=== PATIENT | male | born 1960 | race Caucasian/White ===

== ENCOUNTER 2021-07-27 06:33 | Day surgery (SDC) | payer OTHER, SELFPAY ==
[2021-07-25 10:47] VITALS: BMI 28.2
[2021-07-27 06:50] VITALS: BP 179/108; PULSE 67; RESP 18; TEMP 36.1; O2SAT 97
[2021-07-27] MEDS: sodium chloride 0.9% 1,000 ML 30 ML IV (06:57)
--- NOTE | 2021-07-27 06:58 | W.PM.OPSFHP ---
Same Day Surgery H&P Indication for Procedure/HPI DATE OF PROCEDURE: July 27, 2021 CHIEF COMPLAINT/INDICATIONFOR SURGICAL PROCEDURE: colonoscopy PREOP DIAGNOSIS: diagnostic PLANNED PROCEDURE: Operation Date: 07/27/21 08:00 Proposed Procedures p Colonoscopy 110988/z86.010(Not Applicable) - All Auguste MD Medications/Allergies* Home Medications Medication Instructions Recorded Confirmed Type aspirin 81 mg tablet,delayed 81 mg PO DAILY 05/21/21 07/27/21 History release (Adult Low Dose Aspirin) atorvastatin 80 mg tablet 80 mg PO DAILY 05/21/21 07/27/21 History fluorouracil 5 % topical cream 1 applic TOPICAL BID 05/21/21 07/25/21 History metoprolol succinate 100 mg 100 mg PO DAILY 05/21/21 07/27/21 History tablet,extended release 24 hr multivitamin 1 tab PO DAILY 05/21/21 07/27/21 History naproxen 250 mg tablet 250 mg PO BID PRN 05/21/21 07/27/21 History Allergies/Adverse Reactions Allergy/AdvReac Type Severity Reaction Status Date / Time No Known Allergies Allergy Unverified 05/21/21 11:40 Current Medications: Generic Name Dose Route Start Last Admin Trade Name Freq PRN Reason Stop Dose Admin Sodium Chloride 1,000 mls @ 30 mls/hr 07/27/21 06:45 07/27/21 06:57 Sodium Chloride 0.9% IV 07/28/21 06:44 30 mls/hr .Q24H MARGUERITE Administration Pertinent History/Comorbid Conditions* Medical History (Updated 05/21/21 @ 17:42 by All Auguste MD) Hyperlipidemia Hypertension Left inguinal hernia Vitamin D deficiency Surgical History (Updated 05/21/21 @ 11:51 by All Auguste MD) History of colonoscopy 2011 History of coronary artery stent placement Family History (Updated 05/21/21 @ 11:44 by Flores Oconnell MA) Cancer Hypertension Social History Smoking and tobacco status: never smoked Pertinent Exam Findings alert, oriented x 3 and regular rate & rhythm Recommendations Surgery/Procedure today Coding Level of Care Code Acute 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
--- NOTE | 2021-07-27 07:57 | ANES.PREANE2 ---
Pre-Anesthetic Assessment Height/Weight: Height 1.88 m Weight 99.79 kg Temp Pulse Resp BP Pulse Ox 97.0 F L 67 18 179/108 97 07/27/21 06:50 07/27/21 06:50 07/27/21 06:50 07/27/21 06:50 07/27/21 06:50 Preop Diagnosis: diagnostic Operation Date: 07/27/21 08:00 Proposed Procedures p Colonoscopy 184226/z86.010(Not Applicable) - All Auguste MD Familial anesthetic complications: None Was Beta Brien taken within 24 hours: Yes Was Clonidine taken within 24 hours: N/A Last intake: Intake Last Liquid Date 07/26/21 Last Liquid Time 19:30 Last Solid Date 07/26/21 Last Solid Time 08:00 Social No alcohol and No tobacco Exam alert, oriented x 3, clear to auscultation bilaterally and regular rate & rhythm Airway Submandibular: within normal limits Cervical ROM: within normal limits Mallampati: Class II Dentition: full CV/HEM Hypertension Metabolic Hyperlipidemia Anesthetic Plan ASA status: 2 Anesthesia: MAC Medications/Allergies Home Medications Medication Instructions Recorded Confirmed Last Taken Type aspirin 81 mg tablet,delayed 81 mg PO DAILY 05/21/21 07/27/21 07/25/21 History release (Adult Low Dose Aspirin) atorvastatin 80 mg tablet 80 mg PO DAILY 05/21/21 07/27/21 07/26/21 History fluorouracil 5 % topical cream 1 applic TOPICAL BID 05/21/21 07/25/21 Unknown History metoprolol succinate 100 mg 100 mg PO DAILY 05/21/21 07/27/21 07/26/21 History tablet,extended release 24 hr multivitamin 1 tab PO DAILY 05/21/21 07/27/21 07/26/21 History naproxen 250 mg tablet 250 mg PO BID PRN 05/21/21 07/27/21 07/26/21 History Allergies Allergy/AdvReac Type Severity Reaction Status Date / Time No Known Allergies Allergy Unverified 05/21/21 11:40 Current Medications Generic Name Dose Route Start Last Admin Trade Name Freq PRN Reason Stop Dose Admin Sodium Chloride 1,000 mls @ 30 mls/hr 07/27/21 06:45 07/27/21 06:57 Sodium Chloride 0.9% IV 07/28/21 06:44 30 mls/hr .Q24H MARGUERITE Administration PFSH Anesthesia Medical History (Updated 05/21/21 @ 17:42 by All Auguste MD) Hyperlipidemia Hypertension Left inguinal hernia Vitamin D deficiency Surgical History History of colonoscopy 2012 History of coronary artery stent placement Family History Other Cancer Hypertension Social History Smoking and tobacco status: never smoked Data Anesthesia Cardiac Studies: No Data to Display
[2021-07-27 08:19] VITALS: BP 127/88; PULSE 58; RESP 16; TEMP 36.1; O2SAT 98
--- NOTE | 2021-07-27 08:22 | ANE.PACU2 ---
Inpatient post-anesthesia follow up: Airway intact: Yes Vital signs: Temperature 97.0 F Pulse Rate 67 Respiratory Rate 18 Blood Pressure 179/108 Pulse Oximetry 97 Oxygen Delivery Me thod Oxygen Flow Rate Fraction of Inspir ed Oxygen Hydration adequate: Yes Nausea and vomiting: No Pain level: 1 Mental status: Baseline
[2021-07-27 08:30] VITALS: BP 158/101; PULSE 58; RESP 18; O2SAT 95
== END 2021-07-27 08:47 | disposition home or self-care (01) ==
PROVIDERS: Family Provider Family Medicine; Visit Provider Surgery
PROC: 0DJD8ZZ Inspection of Lower Intestinal Tract, Via Natural or Artificial Opening Endoscopic (ICD-10-PCS; CPT 45378; principal; 2021-07-27 08:00)
DX: K57.30 Diverticulosis of large intestine without perforation or abscess without bleeding (principal); K64.8 Other hemorrhoids; Z86.010 Personal history of colon polyps; Z79.82 Long term (current) use of aspirin; E78.5 Hyperlipidemia, unspecified; I10 Essential (primary) hypertension
CPT/HCPCS: 45378; J2704; J7030

== ENCOUNTER 2021-08-01 10:36 | Outpatient (CLI) | payer OTHER, SELFPAY ==
--- NOTE | 2021-08-01 | US_ITS ---
WS: [id number] RIGHT UPPER QUADRANT ULTRASOUND HISTORY: ELEVATED LIVER ENZYMES COMPARISON: None available. Liver: 13.2 cm in length. Normal size liver. No bile duct dilatation or mass. Portal Vein: Normal hepatopetal flow with monophasic waveform. Gallbladder: Normally distended gallbladder with no stones or wall thickening. Adjacent to the medial gallbladder is an amorphous area of increased echogenicity inseparable from the gallbladder. There i s no increased vascularity. Favor this is probably visceral fat. CBD: 0.3 cm Pancreas: Not visualized. Right kidney: 11.0 cm in length. Normal size and echogenicity. No hydronephrosis or mass. Increase vi sceral fat surrounding the kidney. Aorta and IVC: Atherosclerosis aorta. No aneurysm. No ascites. US/US abdomen limited [id number] IMPRESSION: 1. No cholelithiasis. 2. Amorphous soft tissue of increased echogenicity medial to the gallbladder. Similar findings also surrounding the kidney. I favor these findings are probab ly related to visceral fat. As this is more extensive than typically seen a fol low-up CT abdomen and pelvis with IV and oral contrast would help verify there is no underlying mass. 3. No ascites.
== END 2021-08-01 10:37 | disposition home or self-care (01) ==
LOC: RAD 10:38
PROVIDERS: Family Provider Family Medicine; Visit Provider Family Medicine
DX: Z01.89 Encounter for other specified special examinations (principal)
CPT/HCPCS: 76705

== ENCOUNTER 2021-10-03 16:33 | Emergency (ER) | payer OTHER, SELFPAY ==
[2021-10-03 16:53] VITALS: BP 157/103; PULSE 51; RESP 12; TEMP 36.8; O2SAT 98; BMI 28.0
--- NOTE | 2021-10-03 19:25 | ED_ITS ---
HPI - Wound/Laceration General: Chief Complaint: Wound/Laceration Stated Complaint: split lip Time Seen by Provider: 10/03/21 19:25 History of Present Illness: 61-year-old male patient comes in today with injury to the left lower lip. Patient was playing with his 6-year-old grandson and 4-year-old grandson when the 4-year-old playfully kicked grandpa in the mouth injuring his left lower lip. Patient has a abrasion to the outside of the lip and to the lip itself. Patient also has some ecchymosis and swelling. No dental injury is noted. Review of Systems General: Reports: 10 or more systems reviewed and unremarkable except in HPI and below ENMT: Reports: oral sores PFSH ED PFSH: Medical History (Updated 10/03/21 @ 19:40 by LAUREN Sandhu) Hyperlipidemia Hypertension Left inguinal hernia Vitamin D deficiency Surgical History History of colonoscopy 2011 History of coronary artery stent placement Family History Other Cancer Hypertension Social History Smoking and tobacco status: never smoked Physical Exam Const: COMMON NORMALS: alert HENMT: MOUTH: lip abnormal (Left lower lip has a 1 cm laceration and exterior abrasion) and mouth trauma (Ecchymosis left anterior gum) TEETH & GINGIVA: no abnormal tooth and associated gingiva Neck/C-Spine: COMMON NORMALS: full ROM Resp: COMMON NORMALS: normal respiratory effort Cardio: COMMON NORMALS: regular rate and regular rhythm RATE: regular rate RHYTHM: regular rhythm Extremity: COMMON NORMALS: normal to inspection Neuro: SENSORIUM/ORIENTATION: Yes alert Skin: TRAUMA: abrasion and laceration irregular Procedures Laceration Laceration 1: Site: lip Side (If applicable): left Size (cm): 1 Description: linear Depth: simple, single layer Pre-repair: wound explored and irrigated extensively Skin layer closed with: other (Skin adhesive) Course Vital Signs: Vital signs: Vital Signs Temperature 98.3 F 10/03/21 16:53 Pulse Rate 51 L 10/03/21 16:53 Respiratory Rate 12 10/03/21 16:53 Blood Pressure 157/103 10/03/21 16:53 Pulse Oximetry 98 10/03/21 16:53 MDM - Wound/Laceration Medical Decision Making 61-year-old male patient comes in with injury to the left lower lip. On exam patient has a superficial wound is approximately 1 cm to the exterior part of the lip that appears to be more an abrasion than laceration, patient also has a 1 cm laceration to the lip itself. There is surrounding ecchymosis. No dental fractures are noted. Differential diagnosis includes foreign body, laceration, contusion. No sign of foreign body was noted. Wound was cleaned and adhesive was applied to the laceration. Patient tolerated well. Patient was recommended you eat a soft diet and follow-up with primary care for further instructions. Patient reported understanding agreed to plan. Discharge Plan Discharge Patient Disposition: Home Clinical Impression: Abrasion of lip, initial encounter Condition: Stable Prescriptions: No Action atorvastatin 80 mg tablet 80 mg PO DAILY 0RF metoprolol succinate 100 mg tablet extended release 24 hr 100 mg PO DAILY 0RF fluorouracil 5 % cream 1 applic topical BID 0RF aspirin [Adult Low Dose Aspirin] 81 mg tablet,delayed release (DR/EC) 81 mg PO DAILY 0RF multivitamin Tablet 1 tab PO DAILY 0RF naproxen 250 mg tablet 250 mg PO BID PRN (Reason: Pain) 0RF Discharge Orders: Discharge ED (Routine); Ordered 10/03/21 Ordered By: Anthony Cordoba Referrals: Anthony Cope [Primary Care Provider] - Discharge Diet: Advance as tolerated Discharge Activity: Increase activity as tolerated Patient Instructions: Dental Laceration (ED) Activity Restrictions/Additional Instructions: Soft diet for the next 24 to 48 hours. Avoid acidic foods. Good oral care. Drink plenty of water. Monitor for signs of infection such as increasing swelling and redness with fever. Follow-up with primary care as needed. Return to ER for new concerns. Coding Level of Care Code ED Monotype Keyboard Operator for Mars Borges
[2021-10-03 19:52] VITALS: BP 182/111; PULSE 52; RESP 18; TEMP 37.2; O2SAT 98
== END 2021-10-03 19:53 | disposition home or self-care (01) ==
PROVIDERS: Emergency Provider Nurse Practitioner Family; PCP Family Medicine
DX: S00.511A Abrasion of lip, initial encounter (principal); W50.1XXA Accidental kick by another person, initial encounter; Z79.82 Long term (current) use of aspirin; E78.5 Hyperlipidemia, unspecified; I10 Essential (primary) hypertension
CPT/HCPCS: 12011; 99282

== ENCOUNTER 2021-10-26 06:00 | Outpatient (RCR) | payer OTHER, SELFPAY | END 2021-11-11 23:59 | disposition home or self-care (01) | LOC: APT 06:00 | PROVIDERS: PCP Family Medicine; Referring Provider Orthopaedic Surgery Adult Reconstructive Orthopaedic Surgery; Visit Provider Orthopaedic Surgery Adult Reconstructive Orthopaedic Surgery | DX: Z47.1 Aftercare following joint replacement surgery (principal); Z96.641 Presence of right artificial hip joint | CPT/HCPCS: 97110; 97162 ==

== ENCOUNTER 2021-11-12 06:00 | Outpatient (RCR) | payer OTHER, SELFPAY | END 2021-12-12 23:59 | disposition home or self-care (01) | LOC: APT 06:00 | PROVIDERS: PCP Family Medicine; Visit Provider Orthopaedic Surgery Adult Reconstructive Orthopaedic Surgery | DX: M16.11 Unilateral primary osteoarthritis, right hip (principal) | CPT/HCPCS: 97110; 97140; 97530 ==